=== PATIENT | female | born 1970 | race Caucasian/White ===

== ENCOUNTER 2016-08-13 20:12 | Observation (INO) | payer BC ==
[2016-08-13] MEDS ORDERED: KETOROLAC 30 MG/ML 1 ML VIAL IVP STA ×2 (20:59→22:37)
[2016-08-13] MEDS ORDERED: ONDANSETRON 4 MG/2 ML VIAL IVP STA ×2 (20:59→22:28)
[2016-08-13] MEDS ORDERED: SODIUM CHLORIDE 0.9% 1,000 ML IV STA (20:59)
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
[2016-08-13 21:31] LABS: Basophils # (A) 0.1 k/uL (0-0.2); Basophils % (A) 1 %; CH 28.3; CHCM 32.9; Eosinophils % (A) 0 %; HCT 38.1 % (34.0-46.0); HDW 2.54; HGB 13.3 gm/dL (11.4-16.0); Luc # (Auto) 0.09; Luc % (Auto) 1; Lymphocytes # (A) 0.9 k/uL (1.0-4.8); Lymphocytes % (A) 7 %; MCH 30.1 pg (25.0-35.0); MCHC 34.9 g/dL (31.0-37.0); MCV 86.4 fL (80.0-100.0); Mean Platelet Volume 7.2; Monocytes # (A) 0.2 k/uL (0-1.0); Monocytes % (A) 2 %; Neutrophils # (A) 11.2 k/uL (1.3-7.7); Neutrophils % (A) 90 %; WBC 12.4 k/uL (3.8-10.6)
[2016-08-13 21:32] LABS: Appearance,Urine Clear (Clear); Bilirubin,Urine Negative (Negative); Glucose,Urine (UA) Negative (Negative); Ketones,Urine Trace (Negative); Leukocyte Esterase,Urine Negative (Negative); Nitrite,Urine Negative (Negative); Protein,Urine Trace (Negative); Specific Gravity,Urine 1.022 (1.001-1.035); UA Billing (MACRO vs. MICRO) CHEM; Urobilinogen,Urine <2.0 mg/dL (<2.0)
[2016-08-13 21:44] LABS: ALT 37 U/L (9-52); AST 27 U/L (14-36); Alkaline Phosphatase 35 U/L (38-126); Amylase 42 U/L (30-110); Anion Gap 13 mmol/L; Blood Urea Nitrogen 13 mg/dL (7-17); Calcium 9.2 mg/dL (8.4-10.2); Carbon Dioxide 23 mmol/L (22-30); Chloride 104 mmol/L (98-107); Glucose 104 mg/dL (74-99); Non-African American GFR(MDRD) >60 (>60 ml/min/1.73 sqM); Potassium 4.1 mmol/L (3.5-5.1); Sodium 140 mmol/L (137-145); Total Bilirubin 0.4 mg/dL (0.2-1.3); Total Protein 7.6 g/dL (6.3-8.2)
--- NOTE | 2016-08-13 21:47 | XR ---
EXAMINATION TYPE: XR chest 2V DATE OF EXAM: 08/13/2016 COMPARISON: NONE HISTORY: Epigastric pain TECHNIQUE: Frontal and lateral views of the chest are obtained. FINDINGS: Heart and mediastinum are normal. Lungs are clear. There is no pleural effusion. There are no hilar masses. Bony thorax is intact. IMPRESSION: Normal chest
--- NOTE | 2016-08-13 21:48 | XR ---
EXAMINATION TYPE: XR KUB DATE OF EXAM: 08/13/2016 COMPARISON: NONE HISTORY: Pain TECHNIQUE: 2 views FINDINGS: There is no sign of intestinal obstruction or pneumoperitoneum. Fecal pattern is normal. Daniel wel gas pattern is normal. Lung bases are clear. There are no pathologic calcifications. IMPRESSION: Nonacute abdomen.
[2016-08-13 21:52] LABS: Creatine Kinase 63 U/L (30-135)
[2016-08-13 22:05] LABS: Creatine Kinase MB 0.4 ng/mL (0.0-2.4); Troponin I <0.012 ng/mL (0.000-0.034)
--- NOTE | 2016-08-13 22:36 | US ---
Exam: US GALLBLADDER History: Epigastric pain. Nausea. Comparison: None provided. Technique: Grayscale and color images were obtained. Findings: Examination is technically limited due to overlying bowel gas and body habitus. Liver = 14.3 cm. No focal lesion appreciated. Question mild heterogeneity of the hepatic echotexture. The gallbladder is distended and contains multiple gallstones. Gallbladder wall thickness is at the upper limits of normal. No pericholecystic fluid appreciated. No sonographic Guy's reported. CBD is at the upper limits of normal in caliber measuring 4 mm in diameter. The right kidney is unremarkable. Impression: 1. Distended gallbladder with multiple gallstones. Negative sonographic Guy's. 2. Heterogeneity of the hepatic parenchyma. Suggests fatty infiltration. Correlate with liver lab values.
[2016-08-13] MEDS ORDERED: HYDROmorphone 1 MG/ML 1 ML SYRINGE IVP STA (22:52)
[2016-08-13] MEDS ORDERED: NALOXONE 0.4 MG/ML 1 ML VIAL IV PRN (23:06)
[2016-08-14 00:17] VITALS: BMI 35.2
[2016-08-14] MEDS: SODIUM CHLORIDE 0.9% 1,000 ML IV SCH ×3 (00:21→16:29)
[2016-08-14] MEDS: AMPICILLIN-SULBACTAM 3 GM in SODIUM CHLORIDE 0.9% 100 ML IVPB SCH ×3 (08:43→16:29)
[2016-08-14] MEDS: HYDROmorphone 1 MG/ML 1 ML SYRINGE IV PRN ×3 (08:57→16:27)
[2016-08-14] MEDS: ONDANSETRON 4 MG/2 ML VIAL IVP PRN ×2 (09:03→15:09)
--- NOTE | 2016-08-14 09:32 | P.GSHP ---
History of Present Illness H&P Date: 08/14/16 45-year-old female presented on the day of admission to the emergency room to be evaluated for a sudden onset of mid epigastric pain associated after eating. Patient stated the pain was intense sharp points to the mid epigastric area as to the reference point patient stated radiated into the back. Patient stated that she felt nauseated with it did vomit. Patient stated that she noted several months ago had similar episode not as intense went away on its own. Stated that she was over in [place] visiting family when the incident occurred. States that she had not been experiencing any fever or chills or sweats. She stated that she first noticed the pain around noon on the day of the event when away came back after eating dinner was more intense came into the emergency room to be evaluated for the above-mentioned symptoms . 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 Here visiting family. Currently patient is scheduled today for a lap cholecystectomy possible open patient is aware of the plan of care Currently patient continues to report having midepigastric pain. Patient denies any history of heart disease. Denies any episodes of chest pain tightness or pressure heart palpitation or shortness of breath. Has not had any fever chills. Patient states she's been a fairly active individual. With activity does not experience any chest discomfort. Patient's past medical history significant for seasonal ALLERGIES, hypothyroid, anxiety disorder, iron deficiency anemia Past surgical history , ectopic . Patient has no family history of heart disease. There is no history of gallbladder disease or ulcers. In the emergency room the ultrasound gallbladder did show distended gallbladder with multiple gallstones - Review of Systems Comment: Essentially unremarkable except as mentioned in the present illness Past Medical History Past Medical History: Thyroid Disorder Additional Past Medical History / Comment(s): Anxiety History of Any Multi-Drug Resistant Organisms: None Reported Past Surgical History: Section, Orthopedic Surgery Additional Past Surgical History / Comment(s): D&C, Past Anesthesia/Blood Transfusion Reactions: No Reported Reaction Past Psychological History: Anxiety Smoking Status: Never smoker Past Alcohol Use History: Occasional Past Drug Use History: None Reported - Past Family History Father Family Medical History: Hypertension, Skin Disorder Additional Family Medical History / Comment(s): Skin cancer Mother Family Medical History: Thyroid Disorder Brother(s) Family Medical History: Osteoarthritis (OA) Medications and Allergies Home Medications Medication Instructions Recorded Confirmed Type Calcium Carbonate [Calcium] 600 mg PO DAILY 08/13/16 08/13/16 History Cetirizine HCl [Zyrtec] 10 mg PO DAILY 08/13/16 08/13/16 History Cholecalciferol [Vitamin D3] 2,000 unit PO DAILY 08/13/16 08/13/16 History Ferrous Sulfate [Feosol] 325 mg PO DAILY 08/13/16 08/13/16 History Fluticasone Nasal [place] [Flonase 1 spray EA NOSTRIL BID 08/13/16 08/13/16 History Nasal [place]] Levothyroxine Sodium [Synthroid] 50 mcg PO DAILY 08/13/16 08/13/16 History Magnesium 200 mg PO DAILY 08/13/16 08/13/16 History Multivitamins, Thera [Multivitamin 1 tab PO DAILY 08/13/16 08/13/16 History (formulary)] Thiamine HCl [Vitamin B-1] 50 mg PO DAILY 08/13/16 08/13/16 History busPIRone HCl [Buspar] 10 mg PO BID 08/13/16 08/13/16 History Allergies Allergy/AdvReac Type Severity Reaction Status Date / Time No Known Allergies Allergy Verified 08/13/16 21:03 Surgical - Exam Vital Signs Temp Pulse Resp BP Pulse Ox 97.4 F L 68 18 149/87 99 08/13/16 20:18 08/13/16 20:18 08/13/16 20:18 08/13/16 20:18 08/13/16 20:18 GENERAL APPEARANCE: Pleasant 45-year-old female patient is alert, oriented, in no acute distress. Continues to report having epigastric discomfort with nausea sensation VITAL SIGNS: Reviewed HEENT: Head is normocephalic and atraumatic. Pupils are equal and reactive. The nares are patent. Oropharynx is clear without lesions. NECK: Supple without lymphadenopathy. Traches midline. HEART: S1, S2. Regular rate and rhythm. No murmur denying chest pain LUNGS: No crackles or wheezes are heard. Adequate air entry on room air ABDOMEN: Soft, midepigastric discomfort nondistended with good bowel sounds. No peritoneal signs. No palpable organomegaly or masses. EXTREMITIES: Normal skin color and turgor. No cyanosis, rash, ulceration, clubbing or edema. Radial pedal pulses are 2/4 bilaterally. NEUROLOGICAL: No focal deficits. Strength and sensation are grossly intact. Results - Labs 08/13/16 21:08/13/16 21: Abnormal Lab Results - Last 24 Hours (Table) 08/13/16 08/13/16 08/13/16 Range/Units 21:22 21:22 21: WBC 12.4 H (3.8-10.6) k/uL Neutrophils # 11.2 H (1.3-7.7) k/uL Lymphocytes # 0.9 L (1.0-4.8) k/uL Glucose 104 H (74-99) mg/dL Alkaline Phosphatase 35 L (38-126) U/L Urine Protein Trace H (Negative) Urine Ketones Trace H (Negative) Diabetes panel 08/13/16 Range/Units 21: Sodium 140 (137-145) mmol/L Potassium 4.1 (3.5-5.1) mmol/L Chloride 104 (98-107) mmol/L Carbon Dioxide 23 (22-30) mmol/L BUN 13 (7-17) mg/dL Creatinine 0.80 (0.52-1.04) mg/dL Glucose 104 H (74-99) mg/dL Calcium 9.2 (8.4-10.2) mg/dL AST 27 (14-36) U/L ALT 37 (9-52) U/L Alkaline Phosphatase 35 L (38-126) U/L Total Protein 7.6 (6.3-8.2) g/dL Albumin 4.6 (3.5-5.0) g/dL Calcium panel 08/13/16 Range/Units 21:22 Calcium 9.2 (8.4-10.2) mg/dL Albumin 4.6 (3.5-5.0) g/dL Pituitary panel 08/13/16 Range/Units 21: Sodium 140 (137-145) mmol/L Potassium 4.1 (3.5-5.1) mmol/L Chloride 104 (98-107) mmol/L Carbon Dioxide 23 (22-30) mmol/L BUN 13 (7-17) mg/dL Creatinine 0.80 (0.52-1.04) mg/dL Glucose 104 H (74-99) mg/dL Calcium 9.2 (8.4-10.2) mg/dL Adrenal panel 08/13/16 Range/Units 21:22 Sodium 140 (137-145) mmol/L Potassium 4.1 (3.5-5.1) mmol/L Chloride 104 (98-107) mmol/L Carbon Dioxide 23 (22-30) mmol/L BUN 13 (7-17) mg/dL Creatinine 0.80 (0.52-1.04) mg/dL Glucose 104 H (74-99) mg/dL Calcium 9.2 (8.4-10.2) mg/dL Total Bilirubin 0.4 (0.2-1.3) mg/dL AST 27 (14-36) U/L ALT 37 (9-52) U/L Alkaline Phosphatase 35 L (38-126) U/L Total Protein 7.6 (6.3-8.2) g/dL Albumin 4.6 (3.5-5.0) g/dL Assessment and Plan Plan: Impression Present on admission acute onset mid epigastric pain with nausea vomiting suspect due to cholelithiasis with ultrasound of the gallbladder showing multiple gallstones Obesity BMI 35 Mild leukocytosis suspect reactive present on admission Anxiety disorder nonspecified Hypothyroid on supplements Plan Patient is scheduled this morning for a lap cholecystectomy per Dr. mccollum IV hydration Pain control DVT and GI prophylaxis Further recommendations pending The above dictated assessment and findings were discussed with dr mccollum Impression and the plan of care have been dictated as directed. Naz White nurse practitioner acting as a scribe for dr mccollum
[2016-08-14] MEDS ORDERED: IV FLUID CONTINUATION 1,000 ML IV ONE (11:52)
[2016-08-14] MEDS ORDERED: DEXAMETHASONE SOD PHOSPHATE 10 MG/ML 1 ML VIAL IV ONE (12:15)
[2016-08-14] MEDS ORDERED: ONDANSETRON 4 MG/2 ML VIAL IVP ONE (12:15)
[2016-08-14] MEDS ORDERED: NEOSTIGMINE 1 MG/ML 10 ML VIAL ONE (13:07)
[2016-08-14] MEDS ORDERED: MIDAZOLAM 2 MG/2 ML VIAL ONE (13:07)
[2016-08-14] MEDS ORDERED: LIDOCAINE 1% INJ 10MG/ML (20 ML MDV) ONE (13:07)
[2016-08-14] MEDS ORDERED: LACTATED RINGERS 1,000 ML IV ONE (13:07)
[2016-08-14] MEDS ORDERED: GLYCOPYRROLATE 0.2 MG/ML 2 ML VIAL ONE (13:07)
[2016-08-14] MEDS ORDERED: ROCURONIUM BROMIDE 10 MG/ML 10 ML VIAL IV ONE (13:07)
[2016-08-14] MEDS ORDERED: PROPOFOL 10 MG/ML 20 ML VIAL IV ONE (13:07)
[2016-08-14] MEDS ORDERED: SUCCINYLCHOLINE CHLORIDE 100 MG/5 ML SYR IV ONE (13:07)
[2016-08-14] MEDS ORDERED: fentaNYL (PF) 50 MCG/ML 2 ML AMP ONE (13:07)
[2016-08-14] MEDS ORDERED: BUPIVACAIN-EPI 0.5%-1:200,000 30 ML VIAL SQ ONE (13:31)
--- NOTE | 2016-08-14 15:03 | P.OP ---
Date of Procedure: 08/14/16 Preoperative Diagnosis: Acute on chronic calculus cholecystitis Obesity BMI 35.2 Postoperative Diagnosis: Same Procedure(s) Performed: Laparoscopic cholecystectomy Implants: NA Anesthesia: MAGNUSA Surgeon: Lisa Contreras Estimated Blood Loss (ml): 50 Pathology: other Condition: stable Disposition: PACU Indications for Procedure: 45 years old female presents with intermittent episodes of right upper quadrant pain. Ultrasound showed gallstones with gallbladder wall thickening. Informed consent obtained and she elected to undergo laparoscopic cholecystectomy possible open. Operative Findings: Acute on chronic calculus cholecystitis Description of Procedure: The patient was brought to the operating room and placed in supine position with both arms out. General anesthesia with endotracheal intubation was performed as per anesthesia team. Chlorhexidine was used to prep the abdomen followed by application of sterile drapes. A timeout was performed to verify correct patient and correct procedure. Patient was confirmed to receive perioperative IV antibiotics , heparin 5000 units subcutaneous injection and bilateral SCDs were placed. A 5 mm skin incision was made below the left costal margin at the anterior axillary line. A Veress needle was inserted and pneumoperitoneum was established to a pressure of 15 mmHg. A 5 mm Optiview trocar was loaded on a 5 mm 30 laparoscope and the peritoneal cavity was entered under direct vision using the Optiview technique. Additional 5 mm trocar was placed in the supraumbilical location and two 5 mm trocars along the right subcostal margin. The left 5 mm trocar was upsized to 12mm. The patient was placed in reverse Trendelenburg with right side up. The fundus of the gallbladder was grasped with an atraumatic grasper and was retracted over the dome of the liver. The infundibulum was grasped with an atraumatic grasper and retracted towards the pelvis to expose the Calot's triangle. Lateral and medial peritoneal attachment of the gallbladder bladder was dissected. Circumferential dissection was carried out around the cystic artery and the cystic duct to obtain adequate length for clip application. All the surrounding fibrofatty tissue were removed. Critical view was obtained with cystic duct and cystic artery as the only two structures entering the gallbladder. Two clips were applied on the patient's side and one on the specimen side on the cystic duct first followed by the cystic artery. Endoshears were used to divide the cystic duct and the cystic artery. The gallbladder was taken off the liver bed using a L-hook. It was placed in an endocatch specimen bag and removed through the 12mm port. The gallbladder was passed off as a specimen. The abdominal cavity was inspected. The clips on the cystic duct and cystic artery stump were intact and no bleeding noted from the liver bed. All the trocar sites were examined and no evidence of bleeding. The 12mm port site was closed with two transfascial sutures of 0 Vicryl using a Mannie Jo device. The pneumoperitoneum was evacuated and all the trocars were removed. Local anesthetic was infiltrated along the trocar sites and incisions were closed using 4-0 Monocryl followed by application of Dermabond skin glue. The sponge, instrument and needle count were correct x2. Patient was extubated and taken to post anesthesia care unit in stable condition.
[2016-08-14 15:08] VITALS: RESP 16
[2016-08-14] MEDS ORDERED: PROMETHAZINE INJ 25 MG/ML 1 ML VIAL IVPB ONE (16:01)
[2016-08-14] MEDS: HYDROcodone/APAP 5-325MG 1 EACH TAB PO PRN (20:21)
[2016-08-14] MEDS: busPIRone HCl 10 MG TAB PO SCH (21:05)
[2016-08-15] MEDS: AMPICILLIN-SULBACTAM 3 GM in SODIUM CHLORIDE 0.9% 100 ML IVPB SCH ×2 (00:07→07:56)
[2016-08-15] MEDS: HYDROmorphone 1 MG/ML 1 ML SYRINGE IV PRN ×2 (00:08→04:23)
[2016-08-15 01:48] VITALS: TEMP 97.9
[2016-08-15] MEDS: SODIUM CHLORIDE 0.9% 1,000 ML IV SCH ×2 (02:28→07:56)
[2016-08-15] MEDS ORDERED: LEVOTHYROXINE 50 MCG TAB PO SCH (06:30)
[2016-08-15] MEDS: HYDROcodone/APAP 5-325MG 1 EACH TAB PO PRN ×2 (07:53→11:07)
[2016-08-15] MEDS: busPIRone HCl 10 MG TAB PO SCH (07:57)
[2016-08-15 08:07] VITALS: BP 108/60; PULSE 79
--- NOTE | 2016-08-15 11:44 | P.DS ---
Providers Date of admission: 08/13/16 23:06 Expected date of discharge: 08/15/16 Attending physician: Lisa Contreras Primary care physician: Physician Nonstaff - Discharge Diagnosis(es) (1) Acute and chronic cholecystitis Status: Acute Hospital Course: 45 yrs old female S/P lap mckayla for acute calculous cholecystitis. Did well in the post op period Procedures: lap mckayla Patient Condition at Discharge: Stable Plan - Discharge Summary New Discharge Prescriptions: New Docusate [Colace] 100 mg PO BID #30 capsule HYDROcodone/APAP 5-325MG [[place]elle 5-325] 1 tab PO Q4HR PRN #20 tab PRN Reason: Pain No Action Fluticasone Nasal [place] [Flonase Nasal [place]] 1 spray EA NOSTRIL BID Cetirizine HCl [Zyrtec] 10 mg PO DAILY Thiamine HCl [Vitamin B-1] 50 mg PO DAILY Magnesium 200 mg PO DAILY Ferrous Sulfate [Feosol] 325 mg PO DAILY Cholecalciferol [Vitamin D3] 2,000 unit PO DAILY Calcium Carbonate [Calcium] 600 mg PO DAILY busPIRone HCl [Buspar] 10 mg PO BID Multivitamins, Thera [Multivitamin (formulary)] 1 tab PO DAILY Levothyroxine Sodium [Synthroid] 50 mcg PO DAILY Discharge Medication List Calcium Carbonate [Calcium] 600 mg PO DAILY 08/13/16 [History] Cetirizine HCl [Zyrtec] 10 mg PO DAILY 08/13/16 [History] Cholecalciferol [Vitamin D3] 2,000 unit PO DAILY 08/13/16 [History] Ferrous Sulfate [Feosol] 325 mg PO DAILY 08/13/16 [History] Fluticasone Nasal [place] [Flonase Nasal [place]] 1 spray EA NOSTRIL BID 08/13/16 [ History] Levothyroxine Sodium [Synthroid] 50 mcg PO DAILY 08/13/16 [History] Magnesium 200 mg PO DAILY 08/13/16 [History] Multivitamins, Thera [Multivitamin (formulary)] 1 tab PO DAILY 08/13/16 [History ] Thiamine HCl [Vitamin B-1] 50 mg PO DAILY 08/13/16 [History] busPIRone HCl [Buspar] 10 mg PO BID 08/13/16 [History] Docusate [Colace] 100 mg PO BID #30 capsule 08/14/16 [Rx] HYDROcodone/APAP 5-325MG [P[place]elle 5-325] 1 tab PO Q4HR PRN #20 tab 08/14/16 [Rx] Follow up Appointment(s)/Referral(s): Lisa Contreras MD [STAFF PHYSICIAN] - 09/01/16 None,Stated [REFERRING] - 1-2 days Patient Instructions/Handouts: *Surgery [facility] - Laparoscopic Cholecystectomy Discharge Instructions Activity/Diet/Wound Care/Special Instructions: OK to shower . No soaking bath. No heavy lifting more than 10 lbs for 6 weeks post surgery. No driving while taking narcotics for pain. May use ice packs for local pain relief Take Motrin 400 mg po TID after meals if pain is not controlled Use incentive spireometry 10 times an hour while awake Discharge Disposition: HOME SELF-CARE
== END 2016-08-15 11:49 | disposition home or self-care (01) ==
LOC: EC 20:12 → 3SUR 23:06
PROVIDERS: ADMIT Surgery; ATTEND Surgery
DX: K80.12 Calculus of gallbladder with acute and chronic cholecystitis without obstruction (principal); E03.9 Hypothyroidism, unspecified; F41.9 Anxiety disorder, unspecified; J30.2 Other seasonal allergic rhinitis; D50.9 Iron deficiency anemia, unspecified; E66.9 Obesity, unspecified; Z68.35 Body mass index [BMI] 35.0-35.9, adult; Z82.49 Family history of ischemic heart disease and other diseases of the circulatory system; Z79.51 Long term (current) use of inhaled steroids; Z79.899 Other long term (current) drug therapy
CPT/HCPCS: 36415; 93005; 81025 ×2; 88304; 80053; 82150; 82550; 82553; 83690; 83735; 84484; 85025; 81003; 71020; 74000; 76705; 99285; 47562; 96374; 96375 ×2; 96361 ×2; 96376 ×2; G0378 ×3; J2250; J1100; J2550; J2710; J2405 ×2; J2001; J3010; J1885; J1170 ×3; J0295 ×2; J0330; J2704